=== PATIENT | male | born 1985 | race Caucasian/White ===

== ENCOUNTER 2022-02-11 00:29 | Inpatient (IN) ==
[2022-02-11 01:06] LABS: Hematocrit (blood only) 43.5 % (40.1-51.0); Mean Corpuscular Hemoglobin 30.7 pg (25.0-34.0); Mean Corpuscular Hgb Conc 34.5 g/dL (32.0-36.0); Mean Platelet Volume 10.9 fL (9.4-12.4); Platelet Count 175 K/uL (130-400); RDW Coefficient of Variation 12.1 % (11.5-14.5); RDW Standard Deviation 39.6 fL (36.4-46.3); Red Blood Count 4.89 M/uL (4.63-6.08)
--- NOTE | 2022-02-11 01:12 | Emergency Department Note ---
History of Present Illness General Chief complaint: Alcohol Intoxication Stated complaint: overdose drug and alcohol Time Seen by Provider: 02/11/22 00:49 History of Present Illness 36-year-old male presents emergency department he states that he had taken half of a bottle of Tylenol at an unknown time this evening. Patient states he is depressed he is never done this before however. Patient does admit to drinking alcohol. Patient denies any current complaints such as nausea vomiting abdominal pain or diarrhea. Chest pain or shortness of breath. Patient was brought in by EMS there is no further history available to me as he states he did not want to talk any further. Home Medications Medication Instructions Recorded Confirmed Type No Known Home Medications 02/11/22 02/11/22 History Allergies Allergy/AdvReac Type Severity Reaction Status Date / Time No Known Allergies Allergy Unverified 02/11/22 00:44 Past Med/Surg History Social History Smoking Status: Unknown if ever smoked Preferred Language: Japanese Immunizations: Past medical history denies, past surgical history is unknown, social history positive for alcohol Review of Systems A total of 10 systems reviewed and were otherwise negative Respiratory: no cough Cardiovascular: no chest pain Gastrointestinal: no abdominal pain and no vomiting Psychiatric: + depression Physical Exam Vital Signs Vital Signs - 24 hr 02/11/22 00:43 02/11/22 01:12 02/11/22 01:30 Temperature 36.4 C L Temperature Source Oral Pulse Rate 90 72 74 Pulse Rate from SpO2 Sensor 73 70 Respiratory Rate 17 22 16 Respiratory Effort / Characteristics Non-Labored Spontaneous Respiratory Depth Normal Blood Pressure 96/55 L 88/56 L Blood Pressure Mean 68 66 Pulse Oximetry 98 96 95 Oxygen Delivery Method Room Air Sepsis New/Unexplained Change in Mental Status N/A Sepsis Action Taken by Nursing No Action Required 02/11/22 02:00 02/11/22 02:30 Temperature Temperature Source Pulse Rate 62 77 Pulse Rate from SpO2 Sensor 64 66 Respiratory Rate 17 15 Respiratory Effort / Characteristics Respiratory Depth Blood Pressure 86/49 L 88/53 L Blood Pressure Mean 61 64 Pulse Oximetry 94 94 Oxygen Delivery Method Sepsis New/Unexplained Change in Mental Status Sepsis Action Taken by Nursing GENERAL: Patient is awake alert in no acute distress patient is resting comforta therese EYES: The conjunctivae are clear. The pupils are round and reactive. EARS, NOSE, MOUTH AND THROAT: The nose is without any evidence of any deformity. Mucous membranes are moist. Tongue is midline. NECK: The neck is nontender and supple. RESPIRATORY: Normal respiratory effort is noted there is no evidence of wheezing rhonchi or rales CARDIOVASCULAR: Regular rate and rhythm noted there no murmurs rubs or gallops normal S1 normal S2. GASTROINTESTINAL: The abdomen is soft. Abdomen is nontender. PELVIS: The Pelvis is stable. No tenderness to palpation is noted. BACK: No midline tenderness or or step-off noted range of motion in flexion extension as well as rotation no signs of muscle spasm noted MUSCULOSKELETAL/EXTREMITIES: There is no evidence of gross deformity full range of motion is noted in the hips and shoulders. SKIN: There is no obvious evidence of any rash. There are no petechiae, pallor or cyanosis noted. NEUROLOGIC: Patient is awake alert and oriented PSYCH: Depressed affect, suicidal ideation Course Reevaluation(s) Reevaluation #1: Patient is resting in no distress. No alteration mental status. Patient was started on IV N-acetylcysteine. The case will be discussed with the hospitalist for admission to the ICU Time: 02:13 Consultations Consultation #1: Spoke with Poison Control Center at 2:10 AM. It is recommended that the patient is started on the N-acetylcysteine IV protocol. Time: 02:13 Consultation #2: Spoke with Dr. Scanlon for admission Time: 02:28 Administered Medications Acetylcysteine 9,380 mg/ (Dextrose) 246.9 mls @ 200 mls/hr IV ONCE ONE Stop: 02/11/22 03:17 Last Admin: 02/11/22 02:33 Dose: 200 mls/hr Documented By: Critical Care Time Critical Care Time: Yes Total Critical Care Time: 35 I have personally spent greater than 35 minutes of critical care time in the direct management of this patient. This includes bedside care, interpretation of diagnostic studies, and testing, discussion with consultants, patient, and family members, and other required patient management activities. These minutes are in excess of all separately billable procedures. Medical Decision Making Medical Records Attestation: I reviewed the patient's medical records. Home Medications Current Medication List: was personally reviewed by me Laboratory Data Attestation: I reviewed the patient's lab results. Result diagrams: 02/11/22 00:10 02/11/22 00:10 Lab Results 02/11/22 02/11/22 02/11/22 Range/Units 00:10 00:10 00:10 WBC 12.10 H (4.8-10.8) K/ul RBC 4.89 (4.63-6.08) M/uL Hgb 15.0 (14.0-18.0) g/dl Hct 43.5 (40.1-51.0) % MCV 89.0 (80.0-100.0) fL MCH 30.7 (25.0-34.0) pg MCHC 34.5 (32.0-36.0) g/dL RDW Std Deviation 39.6 (36.4-46.3) fL RDW Coeff of Conor 12.1 (11.5-14.5) % Plt Count 175 (130-400) K/uL MPV 10.9 (9.4-12.4) fL Neutrophils % (Manual) 55 % Lymphocytes % (Manual) 27 % Reactive Lymphs % (Man) 15 % Monocytes % (Manual) 3 % Basophils % (Manual) 1 % Neutrophils # (Manual) 6.65 H (1.4-6.5) K/uL Total Absolute Neuts 6.66 H (1.4-6.5) K/uL Lymphocytes # (Manual) 3.27 (1.2-3.4) K/uL Reactive Lymphs # 1.82 K/uL Total Abs Lymphocytes 5.08 H (1.2-3.4) K/uL Monocytes # (Manual) 0.36 (0.24-0.82) K/uL Basophils # (Manual) 0.12 (0-0.2) K/uL Echinocytes 1+ Sodium 137 (136-145) mmol/L Potassium 3.0 L (3.5-5.1) mmol/L Chloride 103 (98-107) mmol/L Carbon Dioxide 23 (21-32) mmol/L Anion Gap 11 (3-11) BUN 10 (6-23) mg/dl Creatinine 0.91 (0.6-1.4) mg/dl Est Cr Clr Drug Dosing Not Reportable Est GFR ( Amer) 127.0 ml/min Est GFR (Non-Af Amer) 109.6 ml/min BUN/Creatinine Ratio 11.0 (10-20) Glucose 136 H (70-99(Fasting)) mg/dl Calcium 8.9 (8.5-10.1) mg/dl Total Bilirubin 1.5 H (0.2-1.0) mg/dl AST 11 L (13-39) U/L ALT 10 (7-52) U/L Alkaline Phosphatase 55 (34-104) U/L Total Protein 6.8 (6.0-8.3) gm/dl Albumin 4.2 (3.4-5.0) gm/dl Globulin 2.6 (2.5-4.0) gm/dl Albumin/Globulin Ratio 1.6 (0.9-2) TSH 0.707 (0.300-4.500) uIu/ml Salicylates (3.0-30) mg/dl Acetaminophen (10-30) ug/ml Ethyl Alcohol mg/dL (<10.0) mg/dl SARS-CoV-2, RNA, NAAT (NEGATIVE) 02/11/22 02/11/22 02/11/22 Range/Units 00:10 00:10 02:14 WBC (4.8-10.8) K/ul RBC (4.63-6.08) M/uL Hgb (14.0-18.0) g/dl Hct (40.1-51.0) % MCV (80.0-100.0) fL MCH (25.0-34.0) pg MCHC (32.0-36.0) g/dL RDW Std Deviation (36.4-46.3) fL RDW Coeff of Conor (11.5-14.5) % Plt Count (130-400) K/uL MPV (9.4-12.4) fL Neutrophils % (Manual) % Lymphocytes % (Manual) % Reactive Lymphs % (Man) % Monocytes % (Manual) % Basophils % (Manual) % Neutrophils # (Manual) (1.4-6.5) K/uL Total Absolute Neuts (1.4-6.5) K/uL Lymphocytes # (Manual) (1.2-3.4) K/uL Reactive Lymphs # K/uL Total Abs Lymphocytes (1.2-3.4) K/uL Monocytes # (Manual) (0.24-0.82) K/uL Basophils # (Manual) (0-0.2) K/uL Echinocytes Sodium (136-145) mmol/L Potassium (3.5-5.1) mmol/L Chloride (98-107) mmol/L Carbon Dioxide (21-32) mmol/L Anion Gap (3-11) BUN (6-23) mg/dl Creatinine (0.6-1.4) mg/dl Est Cr Clr Drug Dosing Est GFR ( Amer) ml/min Est GFR (Non-Af Amer) ml/min BUN/Creatinine Ratio (10-20) Glucose (70-99(Fasting)) mg/dl Calcium (8.5-10.1) mg/dl Total Bilirubin (0.2-1.0) mg/dl AST (13-39) U/L ALT (7-52) U/L Alkaline Phosphatase (34-104) U/L Total Protein (6.0-8.3) gm/dl Albumin (3.4-5.0) gm/dl Globulin (2.5-4.0) gm/dl Albumin/Globulin Ratio (0.9-2) TSH (0.300-4.500) uIu/ml Salicylates < 3.0 L (3.0-30) mg/dl Acetaminophen 208 H* (10-30) ug/ml Ethyl Alcohol mg/dL 124.0 H (<10.0) mg/dl SARS-CoV-2, RNA, NAAT NEGATIVE (NEGATIVE) ECG Data Attestation: I personally reviewed and interpreted this ECG as follows: Additional Comments: EKG interpreted by me normal sinus rhythm with a rate of 64 normal intervals normal axis QTC is normal there is no terminal R wave in aVR. MDM Narrative Medical decision making differential diagnosis includes suicidal ideation, depression, anxiety, Tylenol overdose, alcohol intoxication. Plan is to check labs, EKG, case management and evaluation for psychiatric clearance Patient was evaluated for Tylenol overdose he has a Tylenol level greater than 200. Case was discussed with the Poison Control Center, the patient was started on acetylcysteine protocol. This is concerning his LFTs are normal. Case was discussed with the hospitalist for admission. The patient will be admitted for Tylenol overdose alcohol intoxication and depression with suicidal ideation. Impression & Plan Overdose on Tylenol, Alcohol intoxication, Depression, Suicidal ideation Discharge Plan Visit Data Chief Complaint: Alcohol Intoxication Stated Complaint: overdose drug and alcohol ED Provider: Hay Guo Discharge Problem: Overdose on Tylenol, Alcohol intoxication, Depression, Suicidal ideation Patient Disposition: Being Evaluated by Hospitalist Forms Stand Alone Forms: [facility] Prescriptions Prescriptions: No Action No Known Home Medications Referrals Referrals: PCP,NO [Primary Care Provider] -
[2022-02-11 01:31] LABS: ALC (manual) 5.08 K/uL (1.2-3.4); ANC (manual) 6.66 K/uL (1.4-6.5); Basophils # (manual) 0.12 K/uL (0-0.2); Basophils % (manual) 1 %; Echinocytes 1+; Lymphocytes # (manual) 3.27 K/uL (1.2-3.4); Lymphocytes % (manual) 27 %; Monocytes # (manual) 0.36 K/uL (0.24-0.82); Monocytes % (manual) 3 %; Neutrophils # (manual) 6.65 K/uL (1.4-6.5); Neutrophils % (manual) 55 %; Reactive Lymphocytes # (manual) 1.82 K/uL; Reactive Lymphocytes % (manual) 15 %
[2022-02-11 01:34] LABS: Alanine Aminotransferase 10 U/L (7-52); Albumin Globulin Ratio 1.6 (0.9-2); Albumin Level 4.2 gm/dl (3.4-5.0); Alkaline Phosphatase 55 U/L (34-104); Anion Gap 11 (3-11); Aspartate Aminotransferase 11 U/L (13-39); Bilirubin,Total 1.5 mg/dl (0.2-1.0); Blood Urea Nitrogen 10 mg/dl (6-23); Calcium 8.9 mg/dl (8.5-10.1); Carbon Dioxide 23 mmol/L (21-32); Chloride 103 mmol/L (98-107); Est GFR (Non-African American) 109.6 ml/min; Globulin 2.6 gm/dl (2.5-4.0); Glucose 136 mg/dl (70-99(Fasting)); Sodium 137 mmol/L (136-145); Total Protein 6.8 gm/dl (6.0-8.3)
[2022-02-11 02:02] LABS: Acetaminophen 208 ug/ml (10-30)
[2022-02-11] MEDS ORDERED: AcetylCYSTEINE IV 21 HR REGIMEN (>40KG) IV STA (02:03)
[2022-02-11] MEDS ORDERED: ACETYLCYSTEINE IV ONE (02:03)
[2022-02-11] MEDS ORDERED: DEXTROSE 5% IV ONE (02:03)
[2022-02-11 02:10] LABS: Salicylate < 3.0 mg/dl (3.0-30)
--- NOTE | 2022-02-11 02:52 | History & Physical Report ---
Date of Service February 11, 2022 Assessment & Plan (1) Overdose on Tylenol: Plan: 36yo male with history of depression for which he uses medical marijuana presents with intentional Tylenol overdose + EtOH intoxication. Patient does not know/will not disclose how much Tylenol he took or when the ingestion occurred. Patient denies ingestion of other agents. Tylenol itubw=830 EtOH level = 124 LFTs with elevated Tbili of 1.5. Normal AST and ALT Patient verbally contracted for safety while in the hospital. -Admit to PCU -Maintain 1:1 sitter -Continue NAC protocol - 20 hour -Psychiatry consultation appreciated -Repeat Acetaminophen and LFT levels in AM -Check INR -Check Utox (2) Depression: Plan: Patient does not currently follow with a PCP Would benefit from continued care outpatient F/E/N - Heplock. Monitor electrolytes. Regular diet/Safe tray as tolerated Ppx - low risk for DVT Code - Full Dispo -Admit to PCU History of Present Illness Chief Complaint: Tylenol overdose Primary Care Provider: NO PCP Scott Gracia is a 36-year-old male with history of depression for which he uses medical marijuana. Patient presents via EMS after a Tylenol overdose. He reports having "a lot going on" but does not provide details. He took an undetermined amount of extra strength Tylenol tonight. Uncertain what time he took the Tylenol. Also drank some alcohol as well. Uncertain how much alcohol he drank. Patient developed nausea and vomited some pills. Called EMS and came to the ER. In the ER he is afebrile, HD stable. Somnolent. He was started on NAC 20 hour protocol by ER with direction from Poison Control Patient does not offer much additional history. Reports a long history of depression. Had a prior suicide attempt in the past with Ibuprofen overdose. He does not follow with Psychiatry and reports he is trying to establish with a PCP. Allergies Allergy/AdvReac Type Severity Reaction Status Date / Time No Known Allergies Allergy Unverified 02/11/22 00:44 Home Medications Medication Instructions Recorded Confirmed Type No Known Home Medications 02/11/22 02/11/22 History Past Med/Surg History Medical History (Updated 02/11/22 @ 03:09 by Florecita Scanlon DO) Depression Overdose on Tylenol Surgical History (Updated 02/11/22 @ 03:09 by Florecita Scanlon DO) H/O heart surgery "atrial something" Social History (Updated 02/11/22 @ 03:09 by Florecita Scanlon DO) Smoking Status: Current every day smoker Hx Alcohol Use: Yes Hx Substance Use: Yes (medical marijuana use) Preferred Language: Italian Review of Systems Review of Systems: All systems reviewed & are unremarkable except as noted in HPI & below Physical Exam Physical Exam: General: patient resting comfortably, NAD, non-toxic in appearance Skin: warm, dry, intact, no rashes or lesions, sternotomy scar HEENT: NC/AT, PERRL, EOMI, anicteric sclera, conjunctiva without injection, external ear normal to inspection and nontender, nares patent, moist mucus membranes, poor dentition, no oropharyngeal lesions, neck supple, trachea midline, no LAD, no thyromegaly, no JVD Heart: +S1/S2, regular, bradycardia, no m/r/g Lungs: equal air entry bilaterally, no rales/rhonchi/wheezes Abd: +BS, soft, NT/ND, no masses/organomegaly/ascites Ext: warm, 2+ pulses in UE/LE bilaterally, no clubbing/cyanosis or edema Neuro: nonfocal, patient AA&O x 4, speech intact, no facial droop, moving all extremities on command with equal strength 5/5 Results & Data Results & Data ([facility]) Vital Signs (Past 12 Hours) Vital Signs Temp Pulse Resp BP Pulse Ox O2 Del Method 02/11/22 02:30 77 15 88/53 L 94 02/11/22 02:00 62 17 86/49 L 94 02/11/22 01:30 74 16 88/56 L 95 02/11/22 01:12 72 22 96 02/11/22 00:43 36.4 C L 90 17 96/55 L 98 Room Air Laboratory Results Laboratory Results WBC 12.10 K/ul (4.8-10.8) H 02/11/22 00:10 RBC 4.89 M/uL (4.63-6.08) 02/11/22 00:10 Hgb 15.0 g/dl (14.0-18.0) 02/11/22 00:10 Hct 43.5 % (40.1-51.0) 02/11/22 00:10 MCV 89.0 fL (80.0-100.0) 02/11/22 00:10 MCH 30.7 pg (25.0-34.0) 02/11/22 00:10 MCHC 34.5 g/dL (32.0-36.0) 02/11/22 00:10 RDW Std Deviation 39.6 fL (36.4-46.3) 02/11/22 00:10 RDW Coeff of Conor 12.1 % (11.5-14.5) 02/11/22 00:10 Plt Count 175 K/uL (130-400) 02/11/22 00:10 MPV 10.9 fL (9.4-12.4) 02/11/22 00:10 Neutrophils % (Manual) 55 % 02/11/22 00:10 Lymphocytes % (Manual) 27 % 02/11/22 00:10 Reactive Lymphs % (Man) 15 % 02/11/22 00:10 Monocytes % (Manual) 3 % 02/11/22 00:10 Basophils % (Manual) 1 % 02/11/22 00:10 Neutrophils # (Manual) 6.65 K/uL (1.4-6.5) H 02/11/22 00:10 Total Absolute Neuts 6.66 K/uL (1.4-6.5) H 02/11/22 00:10 Lymphocytes # (Manual) 3.27 K/uL (1.2-3.4) 02/11/22 00:10 Reactive Lymphs # 1.82 K/uL 02/11/22 00:10 Total Abs Lymphocytes 5.08 K/uL (1.2-3.4) H 02/11/22 00:10 Monocytes # (Manual) 0.36 K/uL (0.24-0.82) 02/11/22 00:10 Basophils # (Manual) 0.12 K/uL (0-0.2) 02/11/22 00:10 Echinocytes 1+ 02/11/22 00:10 Sodium 137 mmol/L (136-145) 02/11/22 00:10 Potassium 3.0 mmol/L (3.5-5.1) L 02/11/22 00:10 Chloride 103 mmol/L (98-107) 02/11/22 00:10 Carbon Dioxide 23 mmol/L (21-32) 02/11/22 00:10 Anion Gap 11 (3-11) 02/11/22 00:10 BUN 10 mg/dl (6-23) 02/11/22 00:10 Creatinine 0.91 mg/dl (0.6-1.4) 02/11/22 00:10 Est Cr Clr Drug Dosing Not Reportable 02/11/22 00:10 Est GFR ( Amer) 127.0 ml/min 02/11/22 00:10 Est GFR (Non-Af Amer) 109.6 ml/min 02/11/22 00:10 BUN/Creatinine Ratio 11.0 (10-20) 02/11/22 00:10 Glucose 136 mg/dl (70-99(Fasting)) H 02/11/22 00:10 Calcium 8.9 mg/dl (8.5-10.1) 02/11/22 00:10 Total Bilirubin 1.5 mg/dl (0.2-1.0) H 02/11/22 00:10 AST 11 U/L (13-39) L 02/11/22 00:10 ALT 10 U/L (7-52) 02/11/22 00:10 Alkaline Phosphatase 55 U/L (34-104) 02/11/22 00:10 Total Protein 6.8 gm/dl (6.0-8.3) 02/11/22 00:10 Albumin 4.2 gm/dl (3.4-5.0) 02/11/22 00:10 Globulin 2.6 gm/dl (2.5-4.0) 02/11/22 00:10 Albumin/Globulin Ratio 1.6 (0.9-2) 02/11/22 00:10 TSH 0.707 uIu/ml (0.300-4.500) 02/11/22 00:10 Salicylates < 3.0 mg/dl (3.0-30) L 02/11/22 00:10 Acetaminophen 208 ug/ml (10-30) H* 02/11/22 00:10 Ethyl Alcohol mg/dL 124.0 mg/dl (<10.0) H 02/11/22 00:10 SARS-CoV-2, RNA, NAAT NEGATIVE (NEGATIVE) 02/11/22 02:14 PG Care Time/CCT Total # of Minutes Spent Total Time Spent with Patient: Total time spent is greater than 50% in coordination of care (as documented) at patient's floor/unit and/or counseling patient: Coding Level of Care Code 12543 Initial Inpt Care Lvl 2 Diagnoses Overdose on Tylenol T39.1X1A Depression F32.A
[2022-02-11 03:49] LABS: Appearance Urine Clear (Clear); Bilirubin Urine Negative (Negative); Blood Urine Negative (Negative); Color Urine Yellow; Glucose Urine UA Negative (Negative); Ketones Urine 2+ (Negative); Leukocyte Esterase Urine Negative (Negative); Nitrite Urine Negative (Negative); Protein Urine Negative (Negative); Specific Gravity Urine 1.016 (1.000-1.030); Urobilinogen Urine Negative (Negative)
[2022-02-11 04:10] LABS: Amphetamines+Metham, Urine Neg (Neg); Barbiturates, Urine Neg (Neg); Benzodiazepine, Urine Neg (Neg); Cocaine, Urine Neg (Neg); MDMA (Ecstacy), Urine Neg (Neg); Methadone, Urine Neg (Neg); Opiate, Urine Neg (Neg); Phencyclidine, Urine Neg (Neg)
[2022-02-11] MEDS ORDERED: ONDANSETRON INJ 2 MG/ML 2 ML VIAL IV PRN (04:45)
[2022-02-11] MEDS: NICOTINE 21 MG/24 HR TDSY TD SCH (06:10)
[2022-02-11 06:50] LABS: Prothrombin Time 10.9 Seconds (9.0-12.0)
[2022-02-11] MEDS ORDERED: CALCIUM CARBONATE 500 MG CHEWABLE TAB PO PRN (09:18)
--- NOTE | 2022-02-11 10:56 | Electrocardiogram Report ---
Test Reason : Blood Pressure : / mmHG Vent. Rate : 064 BPM Atrial Rate : 064 BPM P-R Int : 162 ms QRS Dur : 092 ms QT Int : 432 ms P-R-T Axes : 047 035 044 degrees QTc Int : 445 ms Normal sinus rhythm RSR' or QR pattern in V1 suggests right ventricular conduction delay When compared with ECG of 13-FEB-2013 06:43, No significant change was found Confirmed by Marky Ram ([id number]) on 02/11/2022 10:56:34 AM Referred By: REFERRED SELF Confirmed By:Marky Ram
--- NOTE | 2022-02-11 14:32 | Communication Note ---
Date of Service: February 11, 2022 consult reviewed, case discussed with liaison. Patient with unspecified Tylenol OD with alcohol, receiving NAC. Patient has been sleeping all am per 1-no-1 on attempt to see patient. 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 Financial stressors due to behind on child support but shares custody of 3 kids (age 6, 10, 11). PHQ-9 23 with 3 on #9 indicating SI nearly every day. Reportedly amenable to inpatient care when medically cleared. continue 1 -on -1, should not be allowed to leave AMA. Will need repeat K and LFTs.
--- NOTE | 2022-02-11 16:32 | Hospitalist Progress Note ---
Date of Service February 11, 2022 Assessment & Plan (1) Overdose on Tylenol: Plan: 36yo male with history of depression for which he uses medical marijuana presents with intentional Tylenol overdose + EtOH intoxication. Patient reports that he took "half a 200 count bottle" Patient denies ingestion of other agents. Tylenol level on [id number]=486 EtOH level on admission = 124 LFTs with elevated Tbili of 1.5. Normal AST and ALT Patient verbally contracted for safety while in the hospital. Urine tox also positive for marijuana -Maintain 1:1 sitter -Continue NAC protocol - 20 hour, finishes at 23:59 on 02/11 -AST, ALT, INR, Acetaminophen level 4 hours prior to end of protocol per poison control -If transaminase level is elevated, extend NAC protocol to 72 hours -Psychiatry consulted, appreciate rec's -Repeat Acetaminophen and LFT levels in AM -Check INR in AM (2) Depression: Plan: -Patient does not currently follow with a PCP -Would benefit from continued care outpatient -would benefit from inpatient psychiatric care which he is ammendable to -Discuss with psych liason outpatient psych f/u -should not leave AMA F/E/N - Heplock. Monitor electrolytes. Regular diet/Safe tray as tolerated Ppx - low risk for DVT Code - Full Dispo -PCU Plan hypok - replace. recheck in am Admission and Anticipated Discharge Date Admission Date: February 11, 2022 Supervising Physician Co-Signing Physician Notes Resident Physician Supervision Note: I independently interviewed and examined the patient and verified the heck history and physical, reviewed labs and image studies and agree with resident findings and care plan. Subjective Patient seen in the afternoon as patient was asleep the majority of the morning. No acute events reported after admission. One-to-one present in the room. Patient overall feeling physically okay, unfortunately it seems patient has had been having suicidal ideation daily for quite a while. He did have a previous suicide attempt in the beginning of the year with ibuprofen. Seems to be having financial difficulties more so lately than usual which is exacerbating his depression. Does not currently take any medication for depression nor does he see anyone for management. Denies fever, chills, chest pain, abdominal pain, shortness of breath, nausea, or vomiting. Reports fatigue. No other complaints at this time. Review of Systems Review of Systems: All systems reviewed & are unremarkable except as noted in HPI & below Physical Exam Constitutional: well developed, well nourished, + thin and cooperative Eyes: + anicteric sclerae ENMT: Poor oral and dental hygiene. Neck: normal visual inspection Respiratory: normal respiratory effort, lungs clear to auscultation Cardiovascular: RRR, no murmur, no edema Gastrointestinal (Abdomen): normal bowel sounds, soft, nontender, no hepatosplenomegaly Musculoskeletal: Head/Neck/Chest: normocephalic and head atraumatic Skin: no rashes, warm and dry Neurologic: patellar DTR's 2+ bilat, sensation intact Psychiatric: Orientation: alert and oriented x 3 Eye Contact: + fair eye contact Affect: + depressed affect Results & Data Results & Data ([facility]) Vital Signs (Past 12 Hours) Vital Signs Temp Pulse Pulse Resp BP BP Pulse Ox 02/11/22 15:56 36.8 C 18 118/68 98 02/11/22 14:43 57 L 02/11/22 11:47 36.5 C 82 18 122/79 98 02/11/22 06:16 64 02/11/22 07:19 36.6 C 68 19 110/81 98 02/11/22 04:44 62 02/11/22 04:29 36.7 C 60 18 107/58 L 98 02/11/22 04:36 107/58 L 98 O2 Del Method 02/11/22 15:56 Room Air 02/11/22 14:43 02/11/22 11:47 Room Air 02/11/22 06:16 02/11/22 07:19 Room Air 02/11/22 04:44 02/11/22 04:29 Room Air 02/11/22 04:36 Room Air
[2022-02-11] MEDS ORDERED: POTASSIUM CHLORIDE CRTAB 20 MEQ TABCR PO STA (17:08)
[2022-02-11 21:04] LABS: INR 1.1 (0.9-1.1); Prothrombin Time 11.8 Seconds (9.0-12.0)
[2022-02-11 21:18] LABS: Albumin Globulin Ratio 1.8 (0.9-2); Albumin Level 4.2 gm/dl (3.4-5.0); BUN Creatinine Ratio 10.8 (10-20); Bilirubin,Total 1.7 mg/dl (0.2-1.0); Calcium 9.1 mg/dl (8.5-10.1); Creatinine Clr Calc Pharmacy 114.4 ml/min; Est GFR (African American) 139.5 ml/min; Est GFR (Non-African American) 120.3 ml/min; Globulin 2.3 gm/dl (2.5-4.0); Potassium 3.8 mmol/L (3.5-5.1); Total Protein 6.5 gm/dl (6.0-8.3)
[2022-02-12 07:03] LABS: Hematocrit (blood only) 43.2 % (40.1-51.0); Hemoglobin 14.7 g/dl (14.0-18.0); Mean Corpuscular Hemoglobin 30.1 pg (25.0-34.0); Mean Corpuscular Volume 88.5 fL (80.0-100.0); Mean Platelet Volume 11.2 fL (9.4-12.4); Platelet Count 158 K/uL (130-400); RDW Coefficient of Variation 12.2 % (11.5-14.5); Red Blood Count 4.88 M/uL (4.63-6.08); White Blood Count 5.97 K/ul (4.8-10.8)
[2022-02-12 07:35] LABS: INR 1.1 (0.9-1.1); Prothrombin Time 11.9 Seconds (9.0-12.0)
[2022-02-12 07:37] LABS: Albumin Level 4.1 gm/dl (3.4-5.0); BUN Creatinine Ratio 7.9 (10-20); Bilirubin Direct 0.2 mg/dl (0-0.2); Bilirubin,Total 1.2 mg/dl (0.2-1.0); Creatinine Clr Calc Pharmacy 111.4 ml/min; Potassium 3.7 mmol/L (3.5-5.1); Total Protein 6.2 gm/dl (6.0-8.3)
[2022-02-12] MEDS: NICOTINE 21 MG/24 HR TDSY TD SCH (09:07)
--- NOTE | 2022-02-12 13:33 | Hospitalist Progress Note ---
Date of Service February 12, 2022 Assessment & Plan (1) Overdose on Tylenol: Plan: 36yo male with history of depression for which he uses medical marijuana presents with intentional Tylenol overdose + EtOH intoxication. Patient reports that he took "half a 200 count bottle" Patient denies ingestion of other agents. Tylenol level on [id number], now undetectable EtOH level on admission = 124 LFTs with elevated Tbili of 1.5. Normal AST and ALT (02/12/2022) Patient verbally contracted for safety while in the hospital. Urine tox also positive for marijuana -Maintain 1:1 sitter -Patient has completed 20-hour NAC protocol and is medically cleared -AST, ALT within normal limits on recheck both last night and this morning. -Psychiatry consulted, appreciate rec's: Recommending inpatient psychiatric care. Patient does not have ability to leave AGAINST MEDICAL ADVICE. -Discussed with case management that he will likely require financial assistance given to his lack of insurance, will get assistance tomorrow. -Repeat LFTs in a.m. (2) Depression: Plan: -Patient does not currently follow with a PCP -Would benefit from continued care outpatient down the road -would benefit from inpatient psychiatric care which he is ammendable to -Discuss with psych liason outpatient psych f/u -cannot not leave AMA (3) Hypokalemia: Plan: -Potassium was 3.0 yesterday and was replenished with oral supplementation -Potassium today at 3.7, continue to monitor F/E/N - Heplock. Monitor electrolytes. Regular diet/Safe tray as tolerated Ppx - low risk for DVT Code - Full Dispo -downgrade to med surg Admission and Anticipated Discharge Date Admission Date: February 11, 2022 Supervising Physician Co-Signing Physician Notes Resident Physician Supervision Note: I independently interviewed and examined the patient and verified the heck history and physical, reviewed labs and image studies and agree with resident findings and care plan. Subjective Patient seen at bedside this morning. No acute vents reported overnight. Recheck of transaminases and INR within normal limits last night. Patient seems to be feeling better this morning. Patient is concerned about having to go to inpatient psychiatric care as he is currently without insurance and this would simply add more stress to his life as finances were a majority of the base of why he tried to commit suicide 2 days ago. Physically feeling okay today and has no new complaints. Review of Systems Review of Systems: All systems reviewed & are unremarkable except as noted in HPI & below Physical Exam Constitutional: well developed, well nourished, + thin and cooperative Eyes: + anicteric sclerae Neck: normal visual inspection Respiratory: normal respiratory effort, lungs clear to auscultation Cardiovascular: RRR, no murmur, no edema Gastrointestinal (Abdomen): normal bowel sounds, soft, nontender, no hepatosplenomegaly Musculoskeletal: Head/Neck/Chest: normocephalic and head atraumatic Skin: no rashes, warm and dry Neurologic: patellar DTR's 2+ bilat, sensation intact Psychiatric: Orientation: alert and oriented x 3 Eye Contact: + fair eye contact Affect: + depressed affect Results & Data Results & Data ([facility]) Vital Signs (Past 12 Hours) Vital Signs Temp Pulse Pulse Resp BP Pulse Ox O2 Del Method 02/12/22 12:01 36.8 C 75 16 115/60 98 Room Air 02/12/22 08:00 36.6 C 65 18 108/69 97 Room Air 02/12/22 06:08 58 L 02/12/22 04:00 37.2 C 54 L 24 110/55 L 98 Room Air
--- NOTE | 2022-02-12 15:38 | Psychiatric Consultation ---
Date of Consultation February 12, 2022 Impression / Recommendations Impression 36 yo male with hx of prior suicide attempt, meth and MJ use, presents s/p intentional Tylenol OD requiring NAC. Although he currently denies SI he has very little support and risk factors. He does feel inpatient, particularly on an involuntary, would cause undue financial burden if unable to work and currently without insurance. (1) Overdose on Tylenol: (2) Suicidal ideation: (3) Alcohol intoxication: Plan continue 1-on 1 pending inpatient psychaitric care. Encouraged bed search as cannot guarantee bed availability at [facility] on 02/13/22. Patient resistant. updated Drs. Cazares and Kirt re: disposition. Reviewed that currently no viable safety plan and he is therefore unable to leave the hospital AMA. Psych History Identifying Data 36 yo male from [facility], currently in transitional housing presented for admission on 02/11/22 s/p Tylenol OD as a suicide attempt. Chief Complaint "yeah since I failed I just want to get back to work." History of Present Illness As per initial review of case: consult reviewed, case discussed with liaison. Patient with unspecified Tylenol OD with alcohol, receiving NAC. Patient has been sleeping all am per 1-no-1 on attempt to see patient. Patient has used meth to self medicate in past, positive for MJ (has medical card), hx of ibuprofen OD and 1 prior inpatient stay at [facility]. Financial stressors due to behind on child support but shares custody of 3 kids (age 6, 10, 11). PHQ-9 23 with 3 on #9 indicating SI nearly every day. Reportedly amenable to inpatient care when medically cleared. continue 1 -on -1, should not be allowed to leave AMA. Will need repeat K and LFTs. Today the patient is focussed on his privacy and return to work. He is resistant to 201. He is not able to identify any supports/resources other than [facility] staff and states he'd be willing to stay there for monitoring. Reviewed that a detention is not going to accept him when they are subsidizing an apartment so that he can be safety monitored when a physician is recommending inpatient psychiatry. He states he doesn't need a case resource manager or assistance inapplying MA as he can do it on his phone. Reviewed that he did not do these things prior to coming to hospital. He remains resistant to reaching out to family. He is resistant to bed search given no bed availability at [facility] as he believes it will prolong his stay. He denies SI currently but also can't state what is different other than throwing up Tylenol was a miserable experience that he doesn't want to repeat. Reviewed at least 1 if not 2 previous attempts and "I just want back to my deal." He maintains his current attempt was impulsive and triggered by a picture of his ex. Allergies Allergy/AdvReac Type Severity Reaction Status Date / Time No Known Allergies Allergy Unverified 02/11/22 00:44 Home Medications Medication Instructions Recorded Confirmed Type No Known Home Medications 02/11/22 02/11/22 History Family History denies Personal History Beliefs That Will Affect Care: None Patient History Medical History Depression Overdose on Tylenol Surgical History H/O heart surgery "atrial something" Social History Smoking Status: Heavy tobacco smoker Hx Alcohol Use: Yes Hx Substance Use: No Preferred Language: [place]ralt[place] Coat Fitter Required: No Beliefs That Will Affect Care: None Current Living Situation: Alone Feels Safe at Home: Hesitant to Answer Assistive Devices: None Physical Exam Psychiatric: Orientation: alert and oriented x 3 Apperance: appropriately groomed Eye Contact: good eye contact Motor Behavior: no abnormal motor movements Speech: normal rate/rhythm/volume of speech Affect: + depressed affect Mood: + depressed mood Thought Process: goal directed thought process Thought Content: reality based without delusions Suicidal Thoughts: denies suicidal thoughts Homicidal Thoughts: denies homicidal thoughts Hallucinations: no auditory hallucinations and no visual halluc inations Cognition: attention grossly intact and language grossly intact Estimated Intelligence: consistent with education level Insight: + limited insight Judgement: + limited judgement Vital Signs (Past 24 Hours): Last Vital Signs Temp 36.8 C 02/12/22 12:01 Pulse 75 02/12/22 12:01 Resp 16 02/12/22 12:01 BP 115/60 02/12/22 12:01 Pulse Ox 98 02/12/22 12:01 O2 Del Method 02/12/22 12:01 Review of Systems All systems reviewed & are unremarkable except as noted in HPI & below Results & Data ([facility]) Laboratory Results Labs 02/11/22 02/11/22 02/11/22 00:03 00:10 00:10 WBC 12.10 H RBC 4.89 Hgb 15.0 Hct 43.5 MCV 89.0 MCH 30.7 MCHC 34.5 RDW Std Deviation 39.6 RDW Coeff of Conor 12.1 Plt Count 175 MPV 10.9 Neutrophils % (Manual) 55 Lymphocytes % (Manual) 27 Reactive Lymphs % (Man) 15 Monocytes % (Manual) 3 Basophils % (Manual) 1 Neutrophils # (Manual) 6.65 H Total Absolute Neuts 6.66 H Lymphocytes # (Manual) 3.27 Reactive Lymphs # 1.82 Total Abs Lymphocytes 5.08 H Monocytes # (Manual) 0.36 Basophils # (Manual) 0.12 Echinocytes 1+ PT 10.9 INR 1.0 Sodium 137 Potassium 3.0 L Chloride 103 Carbon Dioxide 23 Anion Gap 11 BUN 10 Creatinine 0.91 Est Cr Clr Drug Dosing Not Reportable Est GFR ( Amer) 127.0 Est GFR (Non-Af Amer) 109.6 BUN/Creatinine Ratio 11.0 Glucose 136 H Calcium 8.9 Total Bilirubin 1.5 H Direct Bilirubin AST 11 L ALT 10 Alkaline Phosphatase 55 Total Protein 6.8 Albumin 4.2 Globulin 2.6 Albumin/Globulin Ratio 1.6 TSH Urine Color Urine Appearance Urine pH Ur Specific [place] Urine Protein Urine Glucose (UA) Urine Ketones Urine Blood Urine Nitrite Urine Bilirubin Urine Urobilinogen Ur Leukocyte Esterase Salicylates Urine Opiates Screen Ur Methadone, Qual Acetaminophen Urine Barbiturates Ur Phencyclidine (PCP) U Amphetamin/Meth Scrn MDMA (Ecstasy) Screen U Benzodiazepines Scrn Ur Cocaine Metabolite U Marijuana (THC) Screen Ethyl Alcohol mg/dL SARS-CoV-2, RNA, NAAT 02/11/22 02/11/22 02/11/22 00:10 00:10 00:10 WBC RBC Hgb Hct MCV MCH MCHC RDW Std Deviation RDW Coeff of Conor Plt Count MPV Neutrophils % (Manual) Lymphocytes % (Manual) Reactive Lymphs % (Man) Monocytes % (Manual) Basophils % (Manual) Neutrophils # (Manual) Total Absolute Neuts Lymphocytes # (Manual) Reactive Lymphs # Total Abs Lymphocytes Monocytes # (Manual) Basophils # (Manual) Echinocytes PT INR Sodium Potassium Chloride Carbon Dioxide Anion Gap BUN Creatinine Est Cr Clr Drug Dosing Est GFR ( Amer) Est GFR (Non-Af Amer) BUN/Creatinine Ratio Glucose Calcium Total Bilirubin Direct Bilirubin AST ALT Alkaline Phosphatase Total Protein Albumin Globulin Albumin/Globulin Ratio TSH 0.707 Urine Color Urine Appearance Urine pH Ur Specific [place] Urine Protein Urine Glucose (UA) Urine Ketones Urine Blood Urine Nitrite Urine Bilirubin Urine Urobilinogen Ur Leukocyte Esterase Salicylates < 3.0 L Urine Opiates Screen Ur Methadone, Qual Acetaminophen 208 H* Urine Barbiturates Ur Phencyclidine (PCP) U Amphetamin/Meth Scrn MDMA (Ecstasy) Screen U Benzodiazepines Scrn Ur Cocaine Metabolite U Marijuana (THC) Screen Ethyl Alcohol mg/dL 124.0 H SARS-CoV-2, RNA, NAAT 02/11/22 02/11/22 02/11/22 02:14 03:30 03:30 WBC RBC Hgb Hct MCV MCH MCHC RDW Std Deviation RDW Coeff of Conor Plt Count MPV Neutrophils % (Manual) Lymphocytes % (Manual) Reactive Lymphs % (Man) Monocytes % (Manual) Basophils % (Manual) Neutrophils # (Manual) Total Absolute Neuts Lymphocytes # (Manual) Reactive Lymphs # Total Abs Lymphocytes Monocytes # (Manual) Basophils # (Manual) Echinocytes PT INR Sodium Potassium Chloride Carbon Dioxide Anion Gap BUN Creatinine Est Cr Clr Drug Dosing Est GFR ( Amer) Est GFR (Non-Af Amer) BUN/Creatinine Ratio Glucose Calcium Total Bilirubin Direct Bilirubin AST ALT Alkaline Phosphatase Total Protein Albumin Globulin Albumin/Globulin Ratio TSH Urine Color Yellow Urine Appearance Clear Urine pH 5.0 Ur Specific [place] 1.016 Urine Protein Negative Urine Glucose (UA) Negative Urine Ketones 2+ H Urine Blood Negative Urine Nitrite Negative Urine Bilirubin Negative Urine Urobilinogen Negative Ur Leukocyte Esterase Negative Salicylates Urine Opiates Screen Neg Ur Methadone, Qual Neg Acetaminophen Urine Barbiturates Neg Ur Phencyclidine (PCP) Neg U Amphetamin/Meth Scrn Neg MDMA (Ecstasy) Screen Neg U Benzodiazepines Scrn Neg Ur Cocaine Metabolite Neg U Marijuana (THC) Screen Pos H Ethyl Alcohol mg/dL SARS-CoV-2, RNA, NAAT NEGATIVE 02/11/22 02/11/22 02/11/22 20:30 20:30 20:30 WBC RBC Hgb Hct MCV MCH MCHC RDW Std Deviation RDW Coeff of Conor Plt Count MPV Neutrophils % (Manual) Lymphocytes % (Manual) Reactive Lymphs % (Man) Monocytes % (Manual) Basophils % (Manual) Neutrophils # (Manual) Total Absolute Neuts Lymphocytes # (Manual) Reactive Lymphs # Total Abs Lymphocytes Monocytes # (Manual) Basophils # (Manual) Echinocytes PT 11.8 INR 1.1 Sodium 141 Potassium 3.8 D Chloride 108 H Carbon Dioxide 27 Anion Gap 6 BUN 8 Creatinine 0.74 Est Cr Clr Drug Dosing 114.4 Est GFR ( Amer) 139.5 Est GFR (Non-Af Amer) 120.3 BUN/Creatinine Ratio 10.8 Glucose 84 Calcium 9.1 Total Bilirubin 1.7 H Direct Bilirubin AST 9 L ALT 9 Alkaline Phosphatase 51 Total Protein 6.5 Albumin 4.2 Globulin 2.3 L Albumin/Globulin Ratio 1.8 TSH Urine Color Urine Appearance Urine pH Ur Specific [place] Urine Protein Urine Glucose (UA) Urine Ketones Urine Blood Urine Nitrite Urine Bilirubin Urine Urobilinogen Ur Leukocyte Esterase Salicylates Urine Opiates Screen Ur Methadone, Qual Acetaminophen 4 L Urine Barbiturates Ur Phencyclidine (PCP) U Amphetamin/Meth Scrn MDMA (Ecstasy) Screen U Benzodiazepines Scrn Ur Cocaine Metabolite U Marijuana (THC) Screen Ethyl Alcohol mg/dL SARS-CoV-2, RNA, NAAT 02/12/22 02/12/22 02/12/22 06:38 06:38 06:38 WBC 5.97 RBC 4.88 Hgb 14.7 Hct 43.2 MCV 88.5 MCH 30.1 MCHC 34.0 RDW Std Deviation 40.0 RDW Coeff of Conor 12.2 Plt Count 158 MPV 11.2 Neutrophils % (Manual) Lymphocytes % (Manual) Reactive Lymphs % (Man) Monocytes % (Manual) Basophils % (Manual) Neutrophils # (Manual) Total Absolute Neuts Lymphocytes # (Manual) Reactive Lymphs # Total Abs Lymphocytes Monocytes # (Manual) Basophils # (Manual) Echinocytes PT 11.9 INR 1.1 Sodium 140 Potassium 3.7 Chloride 106 Carbon Dioxide 30 Anion Gap 4 BUN 6 Creatinine 0.76 Est Cr Clr Drug Dosing 111.4 Est GFR ( Amer) 138.0 Est GFR (Non-Af Amer) 119.0 BUN/Creatinine Ratio 7.9 L Glucose 101 H Calcium 9.0 Total Bilirubin 1.2 H Direct Bilirubin 0.2 AST 9 L ALT 9 Alkaline Phosphatase 51 Total Protein 6.2 Albumin 4.1 Globulin Albumin/Globulin Ratio TSH Urine Color Urine Appearance Urine pH Ur Specific [place] Urine Protein Urine Glucose (UA) Urine Ketones Urine Blood Urine Nitrite Urine Bilirubin Urine Urobilinogen Ur Leukocyte Esterase Salicylates Urine Opiates Screen Ur Methadone, Qual Acetaminophen Urine Barbiturates Ur Phencyclidine (PCP) U Amphetamin/Meth Scrn MDMA (Ecstasy) Screen U Benzodiazepines Scrn Ur Cocaine Metabolite U Marijuana (THC) Screen Ethyl Alcohol mg/dL SARS-CoV-2, RNA, NAAT 02/12/22 06:38 WBC RBC Hgb Hct MCV MCH MCHC RDW Std Deviation RDW Coeff of Conor Plt Count MPV Neutrophils % (Manual) Lymphocytes % (Manual) Reactive Lymphs % (Man) Monocytes % (Manual) Basophils % (Manual) Neutrophils # (Manual) Total Absolute Neuts Lymphocytes # (Manual) Reactive Lymphs # Total Abs Lymphocytes Monocytes # (Manual) Basophils # (Manual) Echinocytes PT INR Sodium Potassium Chloride Carbon Dioxide Anion Gap BUN Creatinine Est Cr Clr Drug Dosing Est GFR ( Amer) Est GFR (Non-Af Amer) BUN/Creatinine Ratio Glucose Calcium Total Bilirubin Direct Bilirubin AST ALT Alkaline Phosphatase Total Protein Albumin Globulin Albumin/Globulin Ratio TSH Urine Color Urine Appearance Urine pH Ur Specific [place] Urine Protein Urine Glucose (UA) Urine Ketones Urine Blood Urine Nitrite Urine Bilirubin Urine Urobilinogen Ur Leukocyte Esterase Salicylates Urine Opiates Screen Ur Methadone, Qual Acetaminophen < 3 L Urine Barbiturates Ur Phencyclidine (PCP) U Amphetamin/Meth Scrn MDMA (Ecstasy) Screen U Benzodiazepines Scrn Ur Cocaine Metabolite U Marijuana (THC) Screen Ethyl Alcohol mg/dL SARS-CoV-2, RNA, NAAT Medications Administered Calcium Carbonate (Calcium Carbonate 500 Mg Chewable Tab) 500 mg PO Q4H PRN PRN Reason: acid reflux Stop: 03/13/22 09:17 Last Admin: 02/11/22 09:27 Dose: 500 mg Documented By: WHIT Miscellaneous (Remove Nicoderm Patch) 1 each N/A DAILY@0859 [facility] Stop: 03/13/22 08:58 Last Admin: 02/12/22 09:09 Dose: 1 each Documented By: Admin: 02/11/22 08:06 Dose: 1 each Documented By: Nicotine (Nicotine 21 Mg/24 Hr Tdsy) 21 mg TD QAM CINTHYA Stop: 03/13/22 08:59 Last Admin: 02/12/22 09:07 Dose: 21 mg Documented By: Admin: 02/11/22 06:10 Dose: 21 mg Documented By: МАРИЯ Coding Level of Care Code 65649 [facility] Care Lvl 2 Diagnoses Overdose on Tylenol T39.1X1A Suicidal ideation R45.851 Alcohol intoxication F10.929
[2022-02-12] MEDS ORDERED: hydrOXYzine HCl 25 MG TAB PO STA (20:51)
--- NOTE | 2022-02-13 06:44 | Hospitalist Progress Note ---
Date of Service February 13, 2022 Assessment & Plan (1) Overdose on Tylenol: Plan: 36yo male with history of depression for which he uses medical marijuana presents with intentional Tylenol overdose + EtOH intoxication. Tylenol OD: -Patient reports that he took "half a 200 count bottle" -Patient denies ingestion of other agents. -Tylenol level on [id number], now undetectable; EtOH level on admission = 124; Urine tox also positive for marijuana -Completed NAC protocol; LFTs with elevated Tbili of 1.5. Normal AST and ALT (02/12/2022), T. Bili down to 1.0 -Patient verbally contracted for safety while in the hospital. -Maintain 1:1 sitter -Psychiatry consulted, appreciate rec's: Recommending inpatient psychiatric care. Patient does not have ability to leave AGAINST MEDICAL ADVICE. -Discussed with case management that he will likely require financial assistance given to his lack of insurance. -Medically cleared at this time. Depression: -Patient does not currently follow with a PCP -Would benefit from continued care outpatient down the road -would benefit from inpatient psychiatric care which he is ammendable to -cannot not leave AMA Hypokalemia: -Potassium was 3.0 yesterday and was replenished with oral supplementation -Potassium today at 3.7 02/12 - repleted 40meq KCl. F/E/N - Heplock. Monitor electrolytes. Regular diet/Safe tray as tolerated Ppx - low risk for DVT Code - Full Dispo -downgrade to med surg (2) Depression: (3) Hypokalemia: Admission and Anticipated Discharge Date Admission Date: February 11, 2022 Subjective Patient seen at the bedside this morning without any pain, shortness of breath, chest pain, abdominal pain. Patient states he knows he will need to go to psychiatric inpatient and will need to talk with case management. He does have a cough but said this is chronic and due to his smoking. He wants to go outside if possible to the healing garden. Review of Systems Constitutional: as per Subjective / HPI Physical Exam Constitutional: WD/WN, vitals as above Eyes: PERRL, conjunctivae normal, anicteric sclerae Respiratory: normal respiratory effort, lungs clear to auscultation Cardiovascular: RRR, no murmur, no edema Gastrointestinal (Abdomen): normal bowel sounds, soft, nontender, no hepatosplenomegaly Psychiatric: Orientation: alert and oriented x 3 mildly flat affect. Results & Data Results & Data ([facility]) Vital Signs (Past 12 Hours) Vital Signs Temp Pulse Pulse Resp BP Pulse Ox O2 Del Method 02/13/22 02:53 36.9 C 63 24 104/64 98 Room Air 02/12/22 23:28 37.0 C 66 18 123/70 99 Room Air 02/12/22 23:00 62 02/12/22 20:00 Room Air 02/12/22 19:24 36.9 C 50 L 15 124/60 100 Room Air Resident Activity Tracking Resident Involvement: Resident Care Provided Care Provided: Adult Hospital Medicine
[2022-02-13 08:06] LABS: Albumin Level 4.1 gm/dl (3.4-5.0); Bilirubin Direct 0.2 mg/dl (0-0.2); Total Protein 6.4 gm/dl (6.0-8.3)
[2022-02-13] MEDS ORDERED: POTASSIUM CHLORIDE CRTAB 20 MEQ TABCR PO STA (08:12)
[2022-02-13 08:22] LABS: Marijuana Quant, GCMS Urine 60 ng/mL (<5)
[2022-02-13] MEDS: NICOTINE 21 MG/24 HR TDSY TD SCH (08:23)
--- NOTE | 2022-02-13 13:38 | Discharge Summary ---
Date of Service February 13, 2022 Admission HPI Per Admitting Provider Scott Gracia is a 36-year-old male with history of depression for which he uses medical marijuana. Patient presents via EMS after a Tylenol overdose. He reports having "a lot going on" but does not provide details. He took an undetermined amount of extra strength Tylenol tonight. Uncertain what time he took the Tylenol. Also drank some alcohol as well. Uncertain how much alcohol he drank. Patient developed nausea and vomited some pills. Called EMS and came to the ER. In the ER he is afebrile, HD stable. Somnolent. He was started on NAC 20 hour protocol by ER with direction from Poison Control Patient does not offer much additional history. Reports a long history of depression. Had a prior suicide attempt in the past with Ibuprofen overdose. He does not follow with Psychiatry and reports he is trying to establish with a PCP. Admission Exam Per Admitting Provider General: patient resting comfortably, NAD, non-toxic in appearance Skin: warm, dry, intact, no rashes or lesions, sternotomy scar HEENT: NC/AT, PERRL, EOMI, anicteric sclera, conjunctiva without injection, external ear normal to inspection and nontender, nares patent, moist mucus membranes, poor dentition, no oropharyngeal lesions, neck supple, trachea midline, no LAD, no thyromegaly, no JVD Heart: +S1/S2, regular, bradycardia, no m/r/g Lungs: equal air entry bilaterally, no rales/rhonchi/wheezes Abd: +BS, soft, NT/ND, no masses/organomegaly/ascites Ext: warm, 2+ pulses in UE/LE bilaterally, no clubbing/cyanosis or edema Neuro: nonfocal, patient AA&O x 4, speech intact, no facial droop, moving all extremities on command with equal strength 5/5 Principal Diagnosis Tylenol overdose. Discharge Exam Constitutional WD/WN, vitals as above Respiratory normal respiratory effort, lungs clear to auscultation Cardiovascular RRR, no murmur, no edema Gastrointestinal (Abdomen) normal bowel sounds, soft, nontender, no hepatosplenomegaly Psychiatric Orientation: alert and oriented x 3 mildly flat affect. Discharge Data Allergies Allergy/AdvReac Type Severity Reaction Status Date / Time No Known Allergies Allergy Unverified 02/11/22 00:44 Consultations 02/11/22 02:29 ED Decision to Admit Stat 02/11/22 04:45 Consult Psychiatry Routine Hospital Course (1) Overdose on Tylenol: 36yo male with history of depression for which he uses medical marijuana presents with intentional Tylenol overdose + EtOH intoxication. Tylenol OD: -Patient reports that he took "half a 200 count bottle" -Patient denies ingestion of other agents. -Tylenol level on [id number]=284, now undetectable; EtOH level on admission = 124; Urine tox also positive for marijuana -Completed NAC protocol; LFTs with elevated Tbili of 1.5. Normal AST and ALT (02/12/2022), T. Bili down to 1.0 -Patient verbally contracted for safety while in the hospital. -Maintain 1:1 sitter -Psychiatry consulted, appreciate rec's: Recommending inpatient psychiatric care. Patient does not have ability to leave AGAINST MEDICAL ADVICE. -Discussed with case management that he will likely require financial assistance given to his lack of insurance. -Medically cleared at this time - will be admitted to . Depression: -Patient does not currently follow with a PCP -Would benefit from continued care outpatient down the road -would benefit from inpatient psychiatric care which he is amenable to -cannot not leave AMA Hypokalemia: -Potassium was 3.0 yesterday and was replenished with oral supplementation -Potassium today at 3.7 02/12 - repleted 40meq KCl - stable. F/E/N - Regular diet/Safe tray as tolerated Ppx - low risk for DVT Code - Full Dispo - Admit to psychiatric inpatient (2) Depression: (3) Alcohol intoxication: (4) Suicidal ideation: (5) Hypokalemia: Total Time Total Time Spent Total Time Spent (In Minutes): <30 Discharge Plan Discharge Items Patient Disposition: Transfer Behavioral Health Fac Reason For Visit: TYLENOL OVERDOSE Discharge Diagnosis: Intentional Tylenol Overdose Activity: Per Instructions section Non-emergency contact: Primary Care Provider Call non-emergency contact if: your symptoms worsen, your pain is worsening and your temperature is above 101 Follow-up/Referrals: Damian Sinha MD [Primary Care Provider] - Diet: Regular Addtl Attending Provider Instructions: 36yo male with history of depression for which he uses medical marijuana presents with intentional Tylenol overdose + EtOH intoxication. Tylenol OD: -Patient reports that he took "half a 200 count bottle" -Patient denies ingestion of other agents. -Tylenol level on [id number]=783, now undetectable; EtOH level on admission = 124; Urine tox also positive for marijuana -Completed NAC protocol; LFTs with elevated Tbili of 1.5. Normal AST and ALT (02/12/2022), T. Bili down to 1.0 -Patient verbally contracted for safety while in the hospital. -Maintain 1:1 sitter -Psychiatry consulted, appreciate rec's: Recommending inpatient psychiatric care to [facility]. Patient does not have ability to leave AGAINST MEDICAL ADVICE. -Discussed with case management that he will likely require financial assistance given to his lack of insurance. -Medically cleared at this time. Depression: -Patient does not currently follow with a PCP -Would benefit from continued care outpatient down the road -would benefit from inpatient psychiatric care which he is ammendable to -cannot leave AMA Hypokalemia: -Potassium was 3.0 yesterday and was replenished with oral supplementation -Potassium 3.7 on 02/12 - repleted 40meq KCl today - stable. F/E/N - Regular diet/Safe tray as tolerated Ppx - low risk for DVT Code - Full Dispo - admit to [facility] Pending Studies at Discharge: No Stand-Alone Forms: My [facility] Medications and DC Order Prescriptions: No Action No Known Home Medications Discharge Orders: Discharge Order (Routine); Ordered 02/13/22 Ordered By: Joselo Aaron Admission Data Admit Date/Time: 02/11/22 02:50 Attending Provider: Nick Sanchez Admit Provider: Florecita Scanlon Primary Care Provider: Damian Sinha Other Providers: Florecita Scanlon ; Keyla Hurt ; Rachel Ramirez ; Latricia Alexander Other Interventions: Discharge Summary Assessment (RN) Last Done: 02/13/22 13:34 Supervising Physician Co-Signing Physician Notes I personally examined the patient and verified all heck points of history and exam, discussed case, and agree with decision making with Dr Aaron feeling physically OK. discussing w psych - opted to have inpt treatment vitals ntoed nad heent nc at mmm breathing unlabored no accessory muscles good effort skin no rashes no pallor or icterus neuro no focal deficits tylenol OD - doing OK. no issues. for inpatient psych otherwise as above Resident Activity Tracking Resident Involvement: Resident Care Provided Care Provided: Adult Hospital Medicine
--- NOTE | 2022-02-13 19:09 | Billing Data ---
Date of Service February 13, 2022 Coding Level of Care Code D/C DAY MANAGEMENT <30 MINS
== END 2022-02-13 13:52 | DRG 918 ==
LOC: ED 00:29 → 2E 02:50 → SUATTDRO 02:50 → 2E 04:30

== ENCOUNTER 2022-02-13 12:31 | Inpatient (IN) ==
--- NOTE | 2022-02-13 14:38 | History & Physical ---
Date of Service February 13, 2022 Impression / Recommendations Impression 36 yo male with hx of prior suicide attempt, meth and MJ use, presents s/p intentional Tylenol OD requiring NAC. Although he currently denies SI he has very little support and risk factors. (1) Depression: (2) Overdose on Tylenol: Plan The patient was admitted to the [facility]) on q15 min checks (behavioral with suicide precautions) for safety. The patient will participate in group, recreational, and milieu therapies and will be offered additional individual and family sessions as clinically appropriate. Risks/benefits/alternatives reviewed re: antidepressants for the treatment of depression and/or anxiety. The patient agreed to a trial of Zoloft restarting at 50 mg daily. Inventory Assets Strengths: independent, utilizing housing support Needs: outpatient therapy, increased social support Suicide Risk Level Suicide Risk Level: Moderate (q15 min suicide checks) Risk Factors Assessment Male: Yes : Yes Do You Have Access To A Gun?: No Mental Health Diagnoses: Yes Previous Attempt: Yes Previous Psychiatric Hospitalization: Yes Protective Factors Assessment Responsible for Young Children: Yes Employed: Yes Psychiatric History Identifying Data MACARIO TAM is a 36-year-old M who currently lives in [facility], has a history of at least 1 prior suicide attempt, and was admitted on 02/13/22 13:59 on a 201 voluntary commitment s/p Tylenol OD. Chief Complaint admit medical floor on 02/11/22 for IV NAC History of Present Illness As per initial consultation on 02/12/22: As per initial review of case: consult reviewed, case discussed with liaison. Patient with unspecified Tylenol OD with alcohol, receiving NAC. Patient has been sleeping all am per 1-no-1 on attempt to see patient. Patient has used meth to self medicate in past, positive for MJ (has medical card), hx of ibuprofen OD and 1 prior inpatient stay at [facility]. Financial stressors due to behind on child support but shares custody of 3 kids (age 6, 10, 11). PHQ-9 23 with 3 on #9 indicating SI nearly every day. Reportedly amenable to inpatient care when medically cleared. continue 1 -on -1, should not be allowed to leave AMA. Will need repeat K and LFTs. Today the patient is focussed on his privacy and return to work. He is resistant to 201. He is not able to identify any supports/resources other than [facility] staff and states he'd be willing to stay there for monitoring. Reviewed that a long term is not going to accept him when they are subsidizing an apartment so that he can be safety monitored when a physician is recommending inpatient psychiatry. He states he doesn't need a heel caser or assistance inapplying MA as he can do it on his phone. Reviewed that he did not do these things prior to coming to hospital. He remains resistant to reaching out to family. He is resistant to bed search given no bed availability at [facility] as he believes it will prolong his stay. He denies SI currently but also can't state what is different other than throwing up Tylenol was a miserable experience that he doesn't want to repeat. Reviewed at least 1 if not 2 previous attempts and "I just want back to my deal." He maintains his current attempt was impulsive and triggered by a picture of his ex. Today the patient reports: that he is open to medication and realized that he'd like time to process and make sure he gets "attached" for therapy. He discussed his medical MJ use in more detail as does use higher %THC products and reviewed impact may have on mood and/or drug drug interactions. 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 He gives very unclear answers as to his sleep/appetite/energy. He did have sexual side effects to Zoloft before but would like to retry it as otherwise felt it helped and the sexual side effects aren't a current concern for him. Past Psychiatric History Outpatient Services: none, no insurance Previous Psych Admissions: [facility] Do You Have Access To A Gun?: No History of Previous Suicide Attempt: Yes (ibuprofen OD in Jun 2021, did not seek treatment) Past Medication Trials: "meds aren't my thing but I may need them this time." Allergies Allergy/AdvReac Type Severity Reaction Status Date / Time No Known Allergies Allergy Unverified 02/11/22 00:44 Home Medications Medication Instructions Recorded Confirmed Type No Known Home Medications 02/11/22 02/11/22 History Family History Family History of: Doesn't Know Alcohol History Hx of Alcohol Use Over the Past 12 Months: Yes Smoking Use Smoking Status: Heavy tobacco smoker Substance History Hx of Over the Counter Med Misuse Over the Past 12 Months: Yes Hx of Organic Substance Use Over the Past 12 Months: Yes (MJ has card) Personal History Living Arrangements: Apartment (subsidized by housing transitions, was at [facility]) Employment Status: Regional Sales Leader Employed ([employer]) Marital Status: Single Number Of Children: 3 Beliefs That Will Affect Care: None Current Legal Problems: Yes (behind on childsupport) Patient History Medical History Depression Overdose on Tylenol Surgical History H/O heart surgery "atrial something" Social History Smoking Status: Heavy tobacco smoker Hx Alcohol Use: Yes Hx Substance Use: No Preferred Language: Greenlandic Communication Ability: Effective Locomotive Electrician Required: No Beliefs That Will Affect Care: None marital status: Single Current Living Situation: Alone Feels Safe at Home: Yes Assistive Devices: None Review of Systems Review of Systems: All systems reviewed & are unremarkable except as noted in HPI & below Physical Exam Psychiatric: Orientation: alert and oriented x 3 Apperance: appropriately dressed and appropriately groomed Eye Contact: good eye contact Motor Behavior: no abnormal motor movements Speech: normal rate/rhythm/volume of speech Affect: + depressed affect Mood: + depressed mood Thought Process: goal directed thought process Thought Content: reality based without delusions Suicidal Thoughts: denies suicidal thoughts Homicidal Thoughts: denies homicidal thoughts Hallucinations: no auditory hallucinations and no visual hallucinations Cognition: attention grossly intact and language grossly intact Estimated Intelligence: consistent with education level Insight: + limited insight Judgement: + limited judgement Exam Statement: A physical exam was performed on the medical floor by Dr. Aaron for the purposes of medical clearance. I accept that physical as correct and adequate for the purposes of the inpatient physical exam. Results & Data ([facility]) Laboratory Results see medical admission
[2022-02-13] MEDS ORDERED: BISMUTH SUBSALICYLATE LIQD 236 ML PO PRN (14:39)
[2022-02-13] MEDS ORDERED: IBUPROFEN 600 MG TAB PO PRN (14:39)
[2022-02-13] MEDS ORDERED: hydrOXYzine HCl 25 MG TAB PO PRN (14:39)
[2022-02-13] MEDS ORDERED: ALUMINUM/MAGNESIUM SUSP 30 ML UDC PO PRN (14:39)
[2022-02-13] MEDS ORDERED: SODIUM CHLORIDE 0.65% NA SOLN 45 ML (OCEAN) PRN (14:39)
[2022-02-14] MEDS: MAGNESIUM HYDROXIDE SUSP 30 ML UDC PO PRN ×2 (05:49→13:18)
[2022-02-14] MEDS ORDERED: busPIRone 5 MG TAB PO PRN (10:50)
[2022-02-14] MEDS: SERTRALINE HCL 50 MG TABLET PO SCH (11:01)
[2022-02-14] MEDS: NICOTINE 21 MG/24 HR TDSY TD SCH (11:01)
--- NOTE | 2022-02-14 17:43 | Psychiatric Progress Note ---
Date of Service February 14, 2022 Impression / Recommendations Impression 36 yo male with hx of prior suicide attempt, meth and MJ use, presents s/p intentional Tylenol OD requiring NAC. Although he currently denies SI he has very little support and risk factors. 02/14/22: no change (1) Depression: (2) Overdose on Tylenol: Plan 02/14/22: patient desires prn for anxiety. Feels Vistaril is too sedating. Risks/benefits/alternatives reviewed re: Buspar. 02/13/22: The patient was admitted to the [facility] ([facility] unit) on q15 min checks (behavioral with suicide precautions) for safety. The patient will participate in group, recreational, and milieu therapies and will be offered additional individual and family sessions as clinically appropriate. Risks/benefits/alternatives reviewed re: antidepressants for the treatment of depression and/or anxiety. The patient agreed to a trial of Zoloft restarting at 50 mg daily. Inventory Assets Strengths: independent, utilizing housing support Needs: outpatient therapy, increased social support Suicide Risk Level Suicide Risk Level: Moderate (q15 min suicide checks) Risk Factors Assessment Male: Yes : Yes Do You Have Access To A Gun?: No Mental Health Diagnoses: Yes Previous Attempt: Yes Previous Psychiatric Hospitalization: Yes Protective Factors Assessment Responsible for Young Children: Yes Employed: Yes Interval History Identifying Information MACARIO TAM is a 36-year-old M who currently lives in [facility], has a history of at least 1 prior suicide attempt, and was admitted on 02/13/22 13:59 on a 201 voluntary commitment s/p Tylenol OD. Chief Complaint "I need some relief from child support." Review of Systems Sleep Information Total Hours of Sleep: 5 Meal Information Percent Meal Consumed - Breakfast: 100 Percent Meal Consumed - Lunch: 25 Percent Meal Consumed - Dinner: 100 Nutrition Comment: pt. states he is not accustimed to eating 3 meals/day Subjective Subjective Patient was seen & assessed and interval progress reviewed with nursing and social work. MUNIRA with request for MOM. Met with patient and SW. He reviewed his fears he will go to snf but no active domestic issues other than arears $2600. Patient seems to have difficulty remembering meeting with me previously and ended up refusing Zoloft initially this am. SW able to confirm he does have active insurance. Physical Exam Psychiatric Orientation: alert and oriented x 3 Apperance: appropriately dressed and appropriately groomed Eye Contact: good eye contact Motor Behavior: no abnormal motor movements Speech: normal rate/rhythm/volume of speech Affect: + depressed affect Mood: + depressed mood Thought Process: + circumstantial thought process Thought Content: reality based without delusions Suicidal Thoughts: denies suicidal thoughts Homicidal Thoughts: denies homicidal thoughts Hallucinations: no auditory hallucinations and no visual hallucinations Cognition: attention grossly intact and language grossly intact Estimated Intelligence: consistent with education level Insight: + limited insight Judgement: + limited judgement Vital Signs (Past 24 Hours) Last Vital Signs Temp 36.6 C 02/14/22 06:37 Pulse 77 02/14/22 06:37 Resp 18 02/14/22 06:37 BP 115/76 02/14/22 06:37 Pulse Ox 97 02/13/22 14:00 O2 Del Method 02/13/22 14:00 Results & Data ([facility]) Current Inpatient Medications Current Inpatient Medications: Current Inpatient Medications Al Hydrox/Mg Hydrox/Simethicone (Aluminum/Magnesium Susp 30 Ml Udc) 30 ml PO Q4H PRN PRN Reason: GI Upset Stop: 03/15/22 14:38 Bismuth Subsalicylate (Bismuth Subsalicylate Liqd 236 Ml) 15 ml PO PRN PRN PRN Reason: Loose Stool Stop: 03/15/22 14:38 Buspirone HCl (Buspirone 5 Mg Tab) 5 mg PO TID PRN PRN Reason: Anxiety Stop: 03/16/22 13:59 Last Admin: 02/14/22 13:35 Dose: 5 mg Hydroxyzine HCl (Hydroxyzine Hcl 25 Mg Tab) 50 mg PO HSZ PRN PRN Reason: Insomnia Stop: 03/15/22 14:38 Ibuprofen (Ibuprofen 600 Mg Tab) 600 mg PO Q6H PRN PRN Reason: Pain or Fever Stop: 03/15/22 14:38 Magnesium Hydroxide (Magnesium Hydroxide Susp 30 Ml Udc) 30 ml PO DAILY PRN PRN Reason: Constipation Stop: 03/15/22 14:38 Last Admin: 02/14/22 13:18 Dose: 30 ml Miscellaneous (Remove Nicoderm Patch) 1 each N/A DAILY@0859 [facility] Stop: 03/17/22 08:58 Nicotine (Nicotine 21 Mg/24 Hr Tdsy) 21 mg TD QAM [facility] Stop: 03/16/22 10:14 Last Admin: 02/14/22 11:01 Dose: 21 mg Sertraline HCl (Sertraline Hcl 50 Mg Tablet) 50 mg PO QAM [facility] Stop: 03/16/22 08:59 Last Admin: 02/14/22 11:01 Dose: 50 mg Sodium Chloride (Sodium Chloride 0.65% Na Soln 45 Ml ([place])) 1 - 2 sprays NA PRN PRN PRN Reason: Nasal Dryness/Congestion Stop: 03/15/22 14:38
[2022-02-15] MEDS: hydrOXYzine HCl 25 MG TAB PO PRN ×2 (00:05→23:55)
[2022-02-15] MEDS: SERTRALINE HCL 50 MG TABLET PO SCH (08:21)
[2022-02-15] MEDS: NICOTINE 21 MG/24 HR TDSY TD SCH (10:36)
[2022-02-15] MEDS: busPIRone 5 MG TAB PO SCH ×2 (14:13→20:27)
--- NOTE | 2022-02-15 16:26 | Psychiatric Progress Note ---
Date of Service February 15, 2022 Impression / Recommendations Impression 36 yo male with hx of prior suicide attempt, meth and MJ use, presents s/p intentional Tylenol OD requiring NAC. Although he currently denies SI he has very little support and risk factors. 02/15/22: some improvement, more engaged in therapies (1) Depression: (2) Overdose on Tylenol: Plan 02/15/22: Wants Buspar 5 mg TID standing trial. Requested paperwork for domestic relations 02/14/22: patient desires prn for anxiety. Feels Vistaril is too sedating. Risks/benefits/alternatives reviewed re: Buspar. 02/13/22: The patient was admitted to the [facility] ([facility] mental health unit) on q15 min checks (behavioral with suicide precautions) for safety. The patient will participate in group, recreational, and milieu therapies and will be offered additional individual and family sessions as clinically appropriate. Risks/benefits/alternatives reviewed re: antidepressants for the treatment of depression and/or anxiety. The patient agreed to a trial of Zoloft restarting at 50 mg daily. Inventory Assets Strengths: independent, utilizing housing support Needs: outpatient therapy, increased social support Suicide Risk Level Suicide Risk Level: Moderate (q15 min suicide checks) Risk Factors Assessment Male: Yes : Yes Do You Have Access To A Gun?: No Mental Health Diagnoses: Yes Previous Attempt: Yes Previous Psychiatric Hospitalization: Yes Protective Factors Assessment Responsible for Young Children: Yes Employed: Yes Interval History Identifying Information MACARIO TAM is a 36-year-old M who currently lives in [facility], has a history of at least 1 prior suicide attempt, and was admitted on 02/13/22 13:59 on a 201 voluntary commitment s/p Tylenol OD. Chief Complaint "I can't trust people since my brother did that." Review of Systems Sleep Information Total Hours of Sleep: 5.5 Sleep Comments: requested and received vistatil 50mg at 0005. Meal Information Percent Meal Consumed - Breakfast: 75 Percent Meal Consumed - Lunch: 25 Percent Meal Consumed - Dinner: 75 Nutrition Comment: pt. states he is not accustimed to eating 3 meals/day Subjective Subjective Patient was seen & assessed and interval progress reviewed with treatment team. Face timed his kids last pm. cooperative with CM referral. Received minimal collateral from his housing support person who has noticed a decline the past month but not acute suicidality. He did take 1 dose of buspar--staff reported it was helpful he is unsure. Physical Exam Psychiatric Orientation: alert and oriented x 3 Apperance: appropriately dressed and appropriately groomed Eye Contact: good eye contact Motor Behavior: no abnormal motor movements Speech: normal rate/rhythm/volume of speech Affect: + depressed affect Mood: + depressed mood Thought Process: + circumstantial thought process Thought Content: reality based without delusions Suicidal Thoughts: denies suicidal thoughts Homicidal Thoughts: denies homicidal thoughts Hallucinations: no auditory hallucinations and no visual hallucinations Cognition: attention grossly intact and language grossly intact Estimated Intelligence: consistent with education level Insight: + limited insight Judgement: + limited judgement Vital Signs (Past 24 Hours) Last Vital Signs Temp 36.5 C 02/15/22 06:32 Pulse 108 H 02/15/22 06:33 Resp 16 02/15/22 06:32 BP 107/72 02/15/22 06:33 Pulse Ox 97 02/13/22 14:00 O2 Del Method 02/13/22 14:00 Results & Data ([facility] [place]) Current Inpatient Medications Current Inpatient Medications: Current Inpatient Medications Al Hydrox/Mg Hydrox/Simethicone (Aluminum/Magnesium Susp 30 Ml Udc) 30 ml PO Q4H PRN PRN Reason: GI Upset Stop: 03/15/22 14:38 Bismuth Subsalicylate (Bismuth Subsalicylate Liqd 236 Ml) 15 ml PO PRN PRN PRN Reason: Loose Stool Stop: 03/15/22 14:38 Buspirone HCl (Buspirone 5 Mg Tab) 5 mg PO TID CINTHYA Stop: 03/17/22 13:59 Last Admin: 02/15/22 14:13 Dose: 5 mg Hydroxyzine HCl (Hydroxyzine Hcl 25 Mg Tab) 50 mg PO HSZ PRN PRN Reason: Insomnia Stop: 03/15/22 14:38 Last Admin: 02/15/22 00:05 Dose: 50 mg Ibuprofen (Ibuprofen 600 Mg Tab) 600 mg PO Q6H PRN PRN Reason: Pain or Fever Stop: 03/15/22 14:38 Magnesium Hydroxide (Magnesium Hydroxide Susp 30 Ml Udc) 30 ml PO DAILY PRN PRN Reason: Constipation Stop: 03/15/22 14:38 Last Admin: 02/14/22 13:18 Dose: 30 ml Miscellaneous (Remove Nicoderm Patch) 1 each N/A DAILY@[id number] [facility] Stop: 03/17/22 08:58 Last Admin: 02/15/22 10:36 Dose: 1 each Nicotine (Nicotine 21 Mg/24 Hr Tdsy) 21 mg TD QAM CINTHYA Stop: 03/16/22 10:14 Last Admin: 02/15/22 10:36 Dose: 21 mg Sertraline HCl (Sertraline Hcl 50 Mg Tablet) 50 mg PO QAM CINTHYA Stop: 03/16/22 08:59 Last Admin: 02/15/22 08:21 Dose: 50 mg Sodium Chloride (Sodium Chloride 0.65% Na Soln 45 Ml ([place])) 1 - 2 sprays NA PRN PRN PRN Reason: Nasal Dryness/Congestion Stop: 03/15/22 14:38 Mental Health & Subst Abuse Tx Psychiatrist Name of Psychiatrist: Felicity Quick Psychiatrist's Date of Appointment with Psychiatrist: 02/22/22 Time of Appointment with Psychiatrist: 8:15 am Psychiatric Appointment Comment: [address] [facility] [id number] Therapist Name of Therapist: Subha Menchaca Therapist's Date of Therapist Appointment: 02/21/22 Time of Therapist Appointment: 9:30 AM Therapy Appointment Comment: [address] [facility], [address], [place] [address] Size Cutter Name of Size Cutter: [employer] Phone Number for Size Cutter: [phone] Case Management Appointment Comment: Your CM will follow up with you to schedule.
[2022-02-16] MEDS: busPIRone 5 MG TAB PO SCH (09:35)
[2022-02-16] MEDS: SERTRALINE HCL 50 MG TABLET PO SCH (09:35)
[2022-02-16] MEDS: NICOTINE 21 MG/24 HR TDSY TD SCH (09:37)
--- NOTE | 2022-02-16 11:06 | Discharge Summary ---
Date of Service February 16, 2022 History of Present Illness As per initial consultation on 02/12/22: As per initial review of case: consult reviewed, case discussed with liaison. Patient with unspecified Tylenol OD with alcohol, receiving NAC. Patient has been sleeping all am per 1-no-1 on attempt to see patient. 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 Financial stressors due to behind on child support but shares custody of 3 kids (age 6, 10, 11). PHQ-9 23 with 3 on #9 indicating SI nearly every day. Reportedly amenable to inpatient care when medically cleared. continue 1 -on -1, should not be allowed to leave AMA. Will need repeat K and LFTs. Today the patient is focussed on his privacy and return to work. He is resistant to 201. He is not able to identify any supports/resources other than [facility] staff and states he'd be willing to stay there for monitoring. Reviewed that a long-term is not going to accept him when they are subsidizing an apartment so that he can be safety monitored when a physician is recommending inpatient psychiatry. He states he doesn't need a social work case manager or assistance inapplying MA as he can do it on his phone. Reviewed that he did not do these things prior to coming to hospital. He remains resistant to reaching out to family. He is resistant to bed search given no bed availability at [facility] as he believes it will prolong his stay. He denies SI currently but also can't state what is different other than throwing up Tylenol was a miserable experience that he doesn't want to repeat. Reviewed at least 1 if not 2 previous attempts and "I just want back to my deal." He maintains his current attempt was impulsive and triggered by a picture of his ex. Today the patient reports: that he is open to medication and realized that he'd like time to process and make sure he gets "attached" for therapy. He discussed his medical MJ use in more detail as does use higher %THC products and reviewed impact may have on mood and/or drug drug interactions. 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 He gives very unclear answers as to his sleep/appetite/energy. He did have sexual side effects to Zoloft before but would like to retry it as otherwise felt it helped and the sexual side effects aren't a current concern for him. Physical Exam Psychiatric See admission H&P and DOD assessment. Vital Signs (Past 24 Hours) Last Vital Signs Temp 36.6 C 02/16/22 11:00 Pulse 88 02/16/22 11:00 Resp 16 02/16/22 11:00 BP 121/81 02/16/22 11:00 Pulse Ox 97 02/16/22 11:00 O2 Del Method 02/13/22 14:00 Principal Diagnosis major depressive disorder Psychiatric Data See daily stay summary. In short, safety was maintained and the patient was cooperative with care. Medication changes included a retrial of Zoloft and a trial of Buspar for anxiety and they tolerated this well. A family session was not held but he did allow involvement/communication with housing transitions and safety plan was completed prior to discharge. Day of Discharge Assessment Today the patient voices readiness for discharge. They note improvement in mood and deny thoughts to harm self or others. Thoughts remain organized and they are improved from admission. There is no evidence of psychosis. They agree to take mediations as prescribed and keep follow-up appointments. They are stable for discharge to outpatient level of care. Transition of Care Transition Of Care Record: was reviewed with the patient Advance Directives Advance Directives Information Provided: Yes Advance Directives: No Mental Health Advance Directive: No Advance Directives on File: No Living Will: No Power of Coke Oven Patcher: No Advance Directives Reason:: Declines as Mental Health Visit. Suicide Risk Level Suicide Risk Level Comments: Suicide risk at discharge is deemed low as the patient is no longer requiring 24-hr monitoring, has a safety plan, and is free of suicidal ideation at discharge. Risk Factors Assessment Male: Yes : Yes Do You Have Access To A Gun?: No Mental Health Diagnoses: Yes Previous Attempt: Yes Previous Psychiatric Hospitalization: Yes Protective Factors Assessment Responsible for Young Children: Yes Employed: Yes Tobacco Cessation at Discharge Tobacco Cessation Medication Prescribed at Discharge: Offered & Pt Refused Total Time Total Time Spent: Greater Than 30 Minutes Total Time Includes: Examination of the patient, Discharge Planning and Medication Reconciliation Hospital Course (1) Depression: (2) Overdose on Tylenol: Plan 02/15/22: Wants Buspar 5 mg TID standing trial. Requested paperwork for domestic relations 02/14/22: patient desires prn for anxiety. Feels Vistaril is too sedating. Risks/benefits/alternatives reviewed re: Buspar. 02/13/22: The patient was admitted to the [facility] ([facility] mental health unit) on q15 min checks (behavioral with suicide precautions) for safety. The patient will participate in group, recreational, and milieu therapies and will be offered additional individual and family sessions as clinically appropriate. Risks/benefits/alternatives reviewed re: antidepressants for the treatment of depression and/or anxiety. The patient agreed to a trial of Zoloft restarting at 50 mg daily. Mental Health & Subst Abuse Tx Psychiatrist Name of Psychiatrist: Felicity Quick Psychiatrist's Date of Appointment with Psychiatrist: 02/22/22 Time of Appointment with Psychiatrist: 8:15 am Psychiatric Appointment Comment: [facility] [address] Psychiatrist Release of Information: Obtained, Reviewed and Signed Therapist Name of Therapist: Subha Menchaca Therapist's Date of Therapist Appointment: 02/21/22 Time of Therapist Appointment: 9:30 AM Therapy Appointment Comment: [address] [facility], [address], [place] [address] Therapist Release of Information: Obtained, Reviewed and Signed Certified Legal Secretary Specialist Name of Certified Legal Secretary Specialist: [facility] Yomaira Marshal Phone Number for Certified Legal Secretary Specialist: [phone] Date of Appointment with Certified Legal Secretary Specialist: 02/16/22 Time of Appointment with Certified Legal Secretary Specialist: 3:30pm Case Management Appointment Comment: Your CM will follow up with you to schedule. Certified Legal Secretary Specialist Release of Information: Obtained, Reviewed and Signed Post Discharge Appointments Smoking Cessation Counseling Tobacco Cessation Medication Prescribed at Discharge: Offered & Pt Refused Contact Information Discharge Discharge Address: [address] [place] [address] [place], [place] Discharge Plan Discharge Items Patient Disposition: Home - Self-Care Reason For Visit: MDD Discharge Diagnosis: major depressive disorder Activity: Resume your previous activity Non-emergency contact: Primary Care Provider, Psychiatrist, Therapist and Agricultural Scientist Call non-emergency contact if: you have any medication questions and your symptoms worsen Follow-up/Referrals: Damian Sinha MD [Primary Care Provider] - Diet: Regular Addtl Attending Provider Instructions: SPECIAL CARE INSTRUCTIONS: 1. Follow through with your scheduled aftercare appointments. If unable to keep an appointment, please call to reschedule. 2. Take your medication only as prescribed. Medication should not be changed or stopped without the approval of your doctor. In the event of worsening symptoms or concerns about side effects, contact your doctor immediately. 3. Utilize new healthy coping skills, anger management skills, and stress management skills learned during your hospitalization. Journal feelings and process them with a support person. Identify stressors or situations that may result in relapse, deterioration or inappropriate behaviors and develop a plan to deal with those issues. 4. If your coping skills are ineffective and you are in crisis, contact your outpatient providers for direction. If unable to reach your providers, please call the [facility] CRISIS LINE AT , go to the [facility] walk-in center at [address] [place] [address] [address], [place], or go to the closest Emergency Room. 5. Avoid alcohol and un-prescribed drugs. 6. You have been provided with the Mental Health Advance Directives Pamphlet for your review. 7. Your condition is stable for discharge to outpatient level of care, but recovery is an ongoing process. Ifthoughts to harm yourself or others return, follow the safety plan developed during your stay. Planning for a safe return home includes securing weapons. Our treatment team recommends weaponsbe removed from the home until your outpatient provider reassesses your progress. In rare cases where the items themselvescannot be removed, guns and ammunitionshould be secured separatelyand keys stored by a reliable personoutside of the home. If you were admitted on an involuntary commitment, the police or other legal authorities may be involved in this process. AFTERCARE APPOINTMENTS: * Please call your insurance company prior to your scheduled appointment to confirm your aftercare providers are covered. Take your insurance information to your appointments. WHO TO CALL AND WHEN: Medical Emergencies: For questions or emergencies related to your hospital stay, please contact the Inpatient Behavioral Health Unit at [phone]. A assessment clinician is on-call 25/12 for the Behavioral Health Unit for emergencies At any time you feel your situation is an emergency, you may also call 911 immediately. Pending Studies at Discharge: No Stand-Alone Forms: My [facility], Smoking Cessation Medications and DC Order Prescriptions: New buspirone 5 mg Tablet 5 mg PO TID 7 Days Qty: 21 0RF sertraline 50 mg Tablet 50 mg PO QAM 7 Days Qty: 7 0RF No Action No Known Home Medications Discharge Orders: Discharge Order (Routine); Ordered 02/16/22 Ordered By: Rachel Ramirez Admission Data Admit Date/Time: 02/13/22 13:59 Attending Provider: Rachel Ramirez Admit Provider: Rachel Ramirez Primary Care Provider: Damian Sinha Other Interventions: Discharge Summary Assessment (RN) Last Done: 02/16/22 11:44 PSY Interdisciplinary Discharge Planning Last Done: 02/16/22 11:48 Coding Level of Care Code 93685 D/C day mgmt > 30 min Diagnoses Depression F32.A Overdose on Tylenol T39.1X1A
== END 2022-02-16 13:09 | disposition home or self-care (01) | DRG 881 ==
LOC: 3S 13:59